=== PATIENT | female | born 1970 | race Caucasian/White ===

== ENCOUNTER 2019-12-15 18:23 | Inpatient (IN) | payer OTHER ==
[~2019-12-15] VITALS: Ht 165.1 cm; Wt 122.5 kg
[2019-12-15 18:25] VITALS: BP 142/84
[2019-12-15] MEDS ORDERED: CYMBALTA20 MG PO (18:34)
[2019-12-15 20:43] LABS: ABSOLUTE NEUTROPHILS 4.1 thou/uL (1.4-8.2); BASOPHILS 0.4 % (0.0-2.0); EOSINOPHILS 3.8 % (0.0-3.0); HEMATOCRIT 42.8 % (37.0-47.0); HEMOGLOBIN 15.1 gm/dL (12.0-15.0); LYMPHOCYTES 25.1 % (24.0-44.0); MCH 31.8 pg (26.0-34.0); MCHC 35.4 g/dL (28.0-37.0); MCV 89.8 fL (80.0-100.0); PLATELET COUNT 269 thou/uL (150-400); POLYS 66.7 % (36.0-66.0); RBC 4.77 mil/uL (4.20-5.00); RDW 13.4 % (10.5-14.5); WBC 6.2 thou/uL (4.0-11.0)
[2019-12-15 20:55] LABS: CALCIUM 9.2 mg/dL (8.5-10.1); CREATININE 0.9 mg/dL (0.6-1.0); POTASSIUM 3.2 mmol/L (3.5-5.1)
[2019-12-15 21:02] LABS: TROPONIN-I 0.06 ng/mL (<0.06)
--- NOTE | 2019-12-16 09:19 | NUR ---
, JENNIFER, CALLED. QUESTIONS ANSWERED. PHONE NUMBER-[phone]. WILL CALL WITH UPDATES. IV TEAM ALSO NOTIFIED TO START 2ND LINE
--- NOTE | 2019-12-16 09:31 | EKG ---
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
--- NOTE | 2019-12-16 17:02 | NUR ---
PATIENT RESTING IN BED. STATES SHE TOOK HER OXYGEN OFF APPROX 1 HOUR AGO TO SEE HER O2 SATS. HAS REMAINED 92-96% ON ROOM AIR. PATIENT WISHES TO DISCUSS WITH ADMITTING DOCTOR ABOUT OPTIONS
[2019-12-16 21:36] VITALS: BP 158/89
[2019-12-17 06:51] LABS: HEMATOCRIT 47.1 % (37.0-47.0); HEMOGLOBIN 15.9 gm/dL (12.0-15.0); MCH 30.7 pg (26.0-34.0); MCHC 33.7 g/dL (28.0-37.0); MCV 91.1 fL (80.0-100.0); RBC 5.17 mil/uL (4.20-5.00); RDW 13.6 % (10.5-14.5); WBC 8.5 thou/uL (4.0-11.0)
[2019-12-17 07:17] LABS: ANION GAP 12 mmol/L (7-16); BUN 13 mg/dL (7-18); CALCIUM 9.5 mg/dL (8.5-10.1); CHLORIDE 104 mmol/L (98-107); CO2 24 mmol/L (21-32); CREATININE 0.8 mg/dL (0.6-1.0); GLUCOSE 121 mg/dL (74-106); MAGNESIUM 2.5 mg/dL (1.8-2.4); POTASSIUM 3.8 mmol/L (3.5-5.1); SODIUM 140 mmol/L (136-145); TROPONIN-I <0.06 ng/mL (<0.06)
--- NOTE | 2019-12-17 13:11 | NUR ---
DR ALMEIDA IN ROOM TO SEE PATIENT
--- NOTE | 2019-12-17 13:27 | NUR ---
PT AMBULATES WITHOUT DIFFICULTY TO THE BATHROOM PER DR ALMEIDA. NO 02 ON. O2 SATS REMAINED 90-92 WHILE WALKING. PT DENIES SOA, STATES SOME SLIGHT DIZZINESS
[2019-12-17] MEDS ORDERED: AZITHROMYCIN500 MG PO (13:33)
[2019-12-17] MEDS ORDERED: ASA81BEC PO (13:33)
[2019-12-17] MEDS ORDERED: PREDNISONE 20 M20 M1 PO (13:33)
[2019-12-17] MEDS ORDERED: PROAIR HFA8.5 GM INH (13:33)
[2019-12-17] MEDS ORDERED: CEFDINIR300 MG PO (13:33)
[2019-12-17 14:02] VITALS: BP 146/96
[2019-12-17 14:11] VITALS: BP 137/84
== END 2019-12-17 14:13 | disposition home or self-care (01) | DRG 193 ==
LOC: ER 18:23 → EROBS 23:51
PROVIDERS: Emergency Medicine; Nurse Practitioner Family; ADMIT Hospitalist; ATTEND Hospitalist
DX: J18.9 Pneumonia, unspecified organism (principal); J96.01 Acute respiratory failure with hypoxia; Z68.41 Body mass index [BMI] 40.0-44.9, adult; F32.9 Major depressive disorder, single episode, unspecified; I10 Essential (primary) hypertension; M79.10 Myalgia, unspecified site; G47.33 Obstructive sleep apnea (adult) (pediatric); Z20.828 Contact with and (suspected) exposure to other viral communicable diseases; E66.01 Morbid (severe) obesity due to excess calories; Z79.82 Long term (current) use of aspirin; Z90.710 Acquired absence of both cervix and uterus; Z82.49 Family history of ischemic heart disease and other diseases of the circulatory system; Z80.41 Family history of malignant neoplasm of ovary; Z79.899 Other long term (current) drug therapy